=== PATIENT | female | born 1935 | race Caucasian/White ===

== ENCOUNTER → 2016-08-29 | Day surgery (SDC) | payer MEDICARE, BC ==
[~2016-08-29] VITALS: Ht 157.5 cm; Wt 47.0 kg
[~2016-08-29] MED LIST: AMPYRA10 MG PO; CITRACAL + D M1 EACH PO; COQ10-VIT E 201 EACH PO; CRANBERRY500 MG PO; KEFLEX250 MG PO; LASIX20 MG PO; LIORESAL10 MG PO; NEURONTIN300 MG PO; PRESERVISION A1 EAC1 PO; TYLENOL EXTRA500 MG PO; TYLENOL WITH C1 EACH PO; VITAMIN B-12500 MCG PO
--- NOTE | ~2016-08-29 | OR ---
PATIENT'S NAME: RACHEL CAMP [facility] AGE: 80 Y [address] 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 PROCEDURE PERFORMED: Arthrodesis of the proximal interphalangeal joint of the third and fourth toes of the right foot with insertion of HammerFiX implant (size small), right foot. OPERATIVE SUMMARY: On 08/29/2016, this 80-year-old female was transported to the operating room and placed on the operating room table in the supine position. Next, the right foot was prepped and draped in the usual sterile fashion after local anesthesia had been achieved via digital blocks under sedation on the right foot. Once the foot was prepped, the pneumatic ankle tourniquet was applied to a well-padded site just proximal to malleoli and roughly inflated to 250 mmHg following exsanguination by Esmarch bandage. Next, the right lower extremity was delivered back to the operating room table. Sterile draping was completed and the following procedure was performed: Arthrosis of the proximal interphalangeal joint of the third and fourth toes of the right foot with insertion of HammerFiX implant. At this time, attention was directed towards the patient's right foot, where on preoperative evaluation she was noted to have semi-rigid contracture of the third and fourth toes at the proximal interphalangeal joint. She did have a hyperkeratotic lesion to the distal tip of the third toe. This determined to maintain correction arthrodesis of the affected joint would be the best option. So, at this time, approximately 3 cm linear skin incision created directly over the proximal interphalangeal joint of the third and fourth toes. These incisions were deepened down through the subcutaneous tissues. All coursing venous tributaries were identified, isolated, clamped, cut, and electrocoagulators were encountered. All vital neurovascular structures were gently retracted in the medial and lateral fashion. Dissection was carried down to the level of the capsular and tendinous structures to the respective proximal interphalangeal joint of the third and fourth toes. Once at this level, a transverse incision was created across the joint to us to incise the PATIENT'S NAME: RACHEL CAMP [facility] AGE: 80 Y [address] ROOM: [place], [place] [id number] LOCATION: [facility] [place] DATE: 08/29/2016 OR/Procedure Report DISCHARGE DATE: FAMILY PHYSICIAN: Macy Preciado MD ATTENDING PHYSICIAN: Matthieu Magaña capsular and tendinous structures. Dissection was carried in the medial and lateral fashion and the collateral ligaments were incised. Next, the tendinous structures were dissected free from the dorsal aspect of the head of the proximal and base of the middle phalanx to expose the joint surfaces for removal of bone for arthrodesis. Once this had been done, there was noted to be hypertrophic bone to both sides of the joint as would be expected with the deformity. Overall, the articular surfaces were not in bad condition for her age. This determined as noted arthrodesis would be necessary. So, utilizing the sagittal saw, the articular surfaces were removed from the respective head of the proximal and base of the phalanx to each respective toe. This was done at the level of the surgical neck. Once this had been removed, there was noted to be easily reduced deformity to each toe. Next, being satisfied with the correction, a fixation was placed utilizing a size small HammerFiX implant. The proximal site to each was drilled and then tapped distally, the implant placed, and then the toe put back into position and held with the HammerFiX implant. This positioning was confirmed utilizing intraoperative C- arm. Being satisfied with the correction, attention was then directed towards the closure. The capsular tissues and tendinous tissues were reapproximated utilizing 4-0 Vicryl in a simple interrupted fashion. Next, 4-0 Vicryl retention stitch was placed to the subcutaneous tissues. The skin edges were then reapproximated using 4-0 Ethilon in a running suture. Prior to closure, the wound was flushed with copious amounts of sterile saline. Being satisfied with this, attention was then directed towards bandaging. Each incision was instilled 1 mL of 0.5% Marcaine for postoperative pain management. Next, each incision area was instilled with 1.5 mL of sterile dexamethasone phosphate. The toes were then splinted utilizing 0.5-inch Steri- Strips and tincture of benzoin. Next, a dressing consisting of Adaptic, sterile 4x4s, Kerlix, Rajesh, and Coban was applied in a mild compressive and corrective fashion to the patient's right foot. The previously applied pneumatic ankle tourniquet was wrapped and deflated, and spontaneous capillary refill time was noted in digits 1 through 5 on the patient's right foot. The patient tolerated the above procedures well and left the operating room in good condition with vital signs stable. She was returned to holding area for further monitoring prior to discharge. MATTHIEU MAGAÑA DPM PDM/modl PATIENT'S NAME: RACHEL CAMP [facility] AGE: 80 Y [address] ROOM: [place] [address] LOCATION: [facility] [place]MIT DATE: 08/29/2016 OR/Procedure Report DISCHARGE DATE: FAMILY PHYSICIAN: Macy Preciado MD ATTENDING PHYSICIAN: Matthieu Magaña /[id number] d: t: 08/29/16 2123, OPERATIVE SUMMARY
== END | disposition disaster alternative care site (69) ==
LOC: GPOC 08-27 15:00 → GSDC 09:06
PROC: 0SGM0KZ Fusion of Right Metatarsal-Phalangeal Joint with Nonautologous Tissue Substitute, Open Approach (ICD-10-PCS; principal; 2016-08-29)
DX: M20.41 Other hammer toe(s) (acquired), right foot (principal); G35 Multiple sclerosis; M19.90 Unspecified osteoarthritis, unspecified site; M81.0 Age-related osteoporosis without current pathological fracture; K21.9 Gastro-esophageal reflux disease without esophagitis; D64.9 Anemia, unspecified; Z90.710 Acquired absence of both cervix and uterus; Z90.13 Acquired absence of bilateral breasts and nipples; Z98.890 Other specified postprocedural states; Z88.0 Allergy status to penicillin; Z88.2 Allergy status to sulfonamides; Z88.1 Allergy status to other antibiotic agents; Z88.5 Allergy status to narcotic agent; Z79.899 Other long term (current) drug therapy
CPT/HCPCS: C1776; J0690; J1100; J2001; J7030